=== PATIENT | male | born 1980 | race Caucasian/White ===

== ENCOUNTER 2017-08-28 23:04 | Emergency (ER) | payer SELFPAY ==
[~2017-08-28] VITALS: Ht 190.5 cm; Wt 127.3 kg
[~2017-08-28 23:04] MED LIST: NO HOME MEDICATIONS; PHENERGAN 25 TA25 MG PO
[2017-08-28 23:15] VITALS: BP 117/61; PULSE 67; TEMP 97.8
== END 2017-08-29 00:06 | disposition home or self-care (01) ==
LOC: COL.ER 23:04
DX: S71.111A Laceration without foreign body, right thigh, initial encounter (principal); Z23 Encounter for immunization; W26.0XXA Contact with knife, initial encounter; Y92.009 Unspecified place in unspecified non-institutional (private) residence as the place of occurrence of the external cause

== ENCOUNTER 2017-09-07 09:15 | Emergency (ER) | payer BC ==
[2017-09-07 09:43] VITALS: BP 110/63; PULSE 71; TEMP 98.6
== END 2017-09-07 09:48 | disposition home or self-care (01) ==
LOC: COL.ER 09:15
DX: S71.111D Laceration without foreign body, right thigh, subsequent encounter (principal); X58.XXXD Exposure to other specified factors, subsequent encounter

== ENCOUNTER → 2017-12-20 | Outpatient (CLI) | payer OTHER | LOC: COL.RAD 10:01 | DX: S46.011D Strain of muscle(s) and tendon(s) of the rotator cuff of right shoulder, subsequent encounter (principal) ==

== ENCOUNTER 2017-12-26 13:58 | Outpatient (RCR) | payer OTHER | END 2018-01-08 | disposition home or self-care (01) | LOC: WSOH | DX: S46.011A Strain of muscle(s) and tendon(s) of the rotator cuff of right shoulder, initial encounter (principal); X50.3XXA Overexertion from repetitive movements, initial encounter; Y92.59 Other trade areas as the place of occurrence of the external cause; Y99.0 Civilian activity done for income or pay; Z79.1 Long term (current) use of non-steroidal anti-inflammatories (NSAID); Z79.899 Other long term (current) drug therapy | CPT/HCPCS: J3301 ==

== ENCOUNTER 2018-01-16 09:55 | Outpatient (RCR) | payer OTHER | END 2018-04-16 | disposition home or self-care (01) | LOC: WSOH | DX: S46.011D Strain of muscle(s) and tendon(s) of the rotator cuff of right shoulder, subsequent encounter (principal); X50.0XXD Overexertion from strenuous movement or load, subsequent encounter; Z79.899 Other long term (current) drug therapy ==